=== PATIENT | male | born 1930 | race Caucasian/White ===

== ENCOUNTER 2017-02-03 13:05 | Emergency (ER) | payer MEDICARE, OTHER ==
--- NOTE | 2017-02-03 13:16 | ERPHSYRPT ---
- History of Present Illness Time Seen by Provider: 02/03/17 13:08 Source: patient, family, EMS, old records Exam Limitations: clinical condition (dementia) Physician History: patient brought [place] by [place] for not swallowing this am; He was recently diagnosed with Pneumonia; given IM meds yesterday; today was offered PO meds but didn't swallow; hx of dementia and altered MS; arrived here awake and interactive; rsponds to pain; moves all extremities, drinks from a straw and cup and swallows ok Timing/Duration: today, resolved prior to arrival Severity: moderate Modifying Factors: Improves With: nothing Allergies/Adverse Reactions: No Known Drug Allergies Allergy (Verified 02/03/17 13:16) Home Medications: Azithromycin [Zithromax] 500 mg PO UD 02/03/17 [History] Bisacodyl [Laxative] 5 mg PO HS 02/03/17 [History] Hx Tetanus, Diphtheria Vaccination/Date Given: No Hx Influenza Vaccination/Date Given: No Hx Pneumococcal Vaccination/Date Given: No - Review of Systems Constitutional: No Symptoms Eyes: No Symptoms Ears, Nose, & Throat: No Symptoms Respiratory: Cyanosis (by hx), Dyspnea (by hx), No Cough, No Wheezing Cardiac: No Chest Pain, No Edema, No Syncope Abdominal/Gastrointestinal: Constipation, No Abdominal Pain, No Nausea, No Vomiting, No Diarrhea Genitourinary Symptoms: No Symptoms Musculoskeletal: Arthralgias, No Neck Pain, No Joint Redness Skin: No Symptoms Neurological: Other (dementia) Psychological: No Symptoms Endocrine: No Symptoms Hematologic/Lymphatic: No Symptoms Immunological/Allergic: No Symptoms - Past Medical History Pertinent Past Medical History: Yes Neurological History: Dementia, Stroke ENT History: No Pertinent History Cardiac History: Coronary Artery Disease Respiratory History: No Pertinent History Endocrine Medical History: No Pertinent History Musculoskeletal History: No Pertinent History GI Medical History: No Pertinent History History: No Pertinent History Psycho-Social History: No Pertinent History Male Reproductive Disorders: No Pertinent History 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 info recalled due to patient confusion - Social History Smoking Status: Former smoker Exposure to second hand smoke: No Alcohol Use: None Drug Use: none Patient Lives Alone: No Significant Family History: no pertinent family hx - Nursing Vital Signs Nursing Vital Signs: Initial Vital Signs Temperature 98.4 F 02/03/17 13:08 Pulse Rate 86 02/03/17 13:08 Respiratory Rate 18 02/03/17 13:08 Blood Pressure 149/93 02/03/17 13:08 O2 Sat by Pulse Oximetry 96 02/03/17 13:08 - Physical Exam General Appearance: mild distress, alert, thin, other (moves all extremities spontaneously and withdraws all from pain) Eye Exam: PERRL/EOMI, eyes nml inspection, other (follows) Ears, Nose, Throat Exam: normal ENT inspection, TMs normal, pharynx normal, dry mucous membranes Neck Exam: normal inspection, non-tender, supple, full range of motion, No meningismus, No JVD Respiratory Exam: airway intact, diminished breath sounds, crackles/rales (few dry scattered), No chest tenderness, No respiratory distress, No rhonchi, No wheezing, No pleural rub Cardiovascular Exam: regular rate/rhythm, normal heart sounds, normal peripheral pulses, capillary refill 2-3 sec, No murmur Gastrointestinal/Abdomen Exam: soft, normal bowel sounds, No tenderness, No guarding, No rebound, No organomegaly Male Genitalia Exam: normal genitalia Rectal Exam: deferred Back Exam: normal inspection, No normal range of motion (decreased due to spacticity), No CVA tenderness, No vertebral tenderness Extremity Exam: normal inspection, normal range of motion, pelvis stable, No joint swelling, No pedal edema Neurologic Exam: alert, cooperative (somewhat), sports official II-XII nml as tested, sensation nml, other (tongue midline), No oriented x 3, No nml station & gait, No motor weakness, No facial droop Skin Exam: normal color, warm, dry, No rash SpO2 Interpretation: normal, O2 applied SpO2: 93 (O2 applied due to hx pneumonia and low sats when picked up) Oxygen Delivery: Room Air - Course Nursing assessment & vital signs reviewed: Yes Ordered Tests: Active Orders 24 hr Category Date Time Status Accucheck STAT Care 02/03/17 13:10 Active Pulse Oximetry (ED) STAT Care 02/03/17 13:10 Active - Progress Progress: improved Progress Note: 02/03/17 13:22 offered the patient water and he took from a straw and a cup and swallowed without difficulty; reviewed CXR (slight LLL infiltrate) and labs showing good lytes and BS; CBC ok; family has arrived and to bedside; when they asked how he was he stated "I'm ok" will monitor and recheck; also consulted with care givers from facility; 02/03/17 13:35 family at bedside; rechecked and patient drinking well and stating he was hungry ; will get food for the patient and recheck; if ok will return to facility and start on oral ATBs as ordered by LMD 02/03/17 13:45 patient ate mashed potatoes, gfreen beans and yams as well as more water; family fine with patient returning to nursing care facility; transport will be called; instructions given Counseled pt/family regarding: diagnosis, need for follow-up - Departure Time of Disposition: 13:46 Departure Disposition: Extended Care Facility Clinical Impression: LLL pneumonia, Dementia, S/p left hip fracture Condition: Stable Critical Care Time: No Referrals: ADAIR MOORE MD [Primary Care Provider] - Additional Instructions: orders as before; start PO Z pack immediately; good hydration Follow-up with family doctor as directed. Call for appointment. Return if any problems. If you smoke please stop. Call or follow up with your family doctor for assistance if you need it to stop. Please wear your seatbelt when driving. Have a nice day. Thank you for allowing us to participate in your care today. :o) Dr David Trujillo
[2017-02-03 14:25] VITALS: BP 154/83; PULSE 91; O2SAT 96
== END 2017-02-03 14:45 | disposition home or self-care (01) ==
LOC: ED 13:05
DX: J18.9 Pneumonia, unspecified organism (principal); F03.90 Unspecified dementia, unspecified severity, without behavioral disturbance, psychotic disturbance, mood disturbance, and anxiety; I25.10 Atherosclerotic heart disease of native coronary artery without angina pectoris; Z79.899 Other long term (current) drug therapy
CPT/HCPCS: 82962; 99283